=== PATIENT | female | born 1965 | race Caucasian/White ===

== ENCOUNTER → 2024-06-29 09:49 | Outpatient (REF) | payer OTHER, SELFPAY | LOC: MRI 3T 09:49 | PROVIDERS: ATTENDING PHYSICIAN Otolaryngology; FAMILY PHYSICIAN Physician Assistant Medical | DX: H90.A21 Sensorineural hearing loss, unilateral, right ear, with restricted hearing on the contralateral side (principal); H93.11 Tinnitus, right ear; R20.0 Anesthesia of skin | CPT/HCPCS: 70553; A9575 ==

== ENCOUNTER → 2024-11-11 15:01 | Outpatient (REF) | payer OTHER, SELFPAY | LOC: PAVMRI 15:01 | PROVIDERS: ATTENDING PHYSICIAN Student in an Organized Health Care Education/Training Program; PRIMARYCARE PHYSICIAN Physician Assistant Medical | DX: R20.0 Anesthesia of skin (principal) | CPT/HCPCS: 70553; A9575 ==

== ENCOUNTER → 2025-09-01 08:45 | Outpatient (REF) | payer OTHER, SELFPAY | LOC: MRI 3T 08:45 | PROVIDERS: ATTENDING PHYSICIAN Neurological Surgery; FAMILY PHYSICIAN Physician Assistant Medical; REFERRING PHYSICIAN Student in an Organized Health Care Education/Training Program | DX: D33.3 Benign neoplasm of cranial nerves (principal) | CPT/HCPCS: 70553; A9575 ==